=== PATIENT | male | born 1945 | race Caucasian/White ===

== ENCOUNTER → 2019-12-28 | Outpatient (CLI) | payer MEDICARE, SELFPAY ==
[2019-12-28 17:17] LABS: Cytology, Body Fluid / CSF SEE PATHOLOGY REPORT
--- NOTE | 2019-12-29 | CYSPIN_PTH ---
PATIENT: SAMARA ELDER LOC: [facility] U#:[id number] AGE/SX: 74/M ROOM: RE12/28/[address]: Dr. Dez Frederick MD : 1945 BED: DIS: 12/28/2019 SPEC #: [id number] RECD: 12/29/19 13:39 STATUS: SCOOTER XIN #: [id number] TED: 12/29/19 00:[address]: Dez Frederick DEPT: CYTOLOGY RECD BY: Gregory Pineda Tissues: Urine Procedures: Pap Stain (control) Special Stain Group II Cytospin Fluid HEADER OPERATION: Not noted PRE-OP DIAGNOSIS: Malignant neoplasm of bladder TISSUE SUBMITTED: Urine for cytology DIAGNOSIS CYTOLOGY Urine for cytology (cytospin): Negative for malignant cells. AM:erica 01/01/20 CYTOLOGY STUDY Slides are reviewed. CYTOLOGY GROSS Received is 30 ml of yellow cloudy fluid labeled with the patient's name and and designated per the requisition as urine. Submitted for cytology preparation. / erica 12/29/19 TC:5 CPT: 52672
== END | disposition home or self-care (01) ==
PROVIDERS: Referring Provider Urology; Visit Provider Urology
DX: C67.9 Malignant neoplasm of bladder, unspecified (principal)
CPT/HCPCS: 88108; 88313

== ENCOUNTER 2021-10-14 10:40 | Outpatient (CLI) | payer MEDICARE, SELFPAY ==
--- NOTE | 2021-10-14 | CYSPIN_PTH ---
PATIENT: SAMARA ELDER LOC: [facility] U#:[id number] AGE/SX: 75/M ROOM: RE10/14/[address]: Dr. Dez Frederick MD : 1945 BED: DIS: 10/14/2021 SPEC #: [id number] RECD: 10/14/21 15:00 STATUS: SCOOTER LAUREN #: [id number] TED: 10/14/21 00:[address]: Dez Frederick DEPT: CYTOLOGY RECD BY: Homer Aiken Tissues: Urine Procedures: Pap Stain (control) Special Stain Group II Cytospin Fluid HEADER OPERATION: Not noted PRE-OP DIAGNOSIS: Screening for neoplasm of prostate TISSUE SUBMITTED: Urine for cytology DIAGNOSIS CYTOLOGY Urine for cytology (cytospin): Atypical urothelial cells noted. Acute inflammation. See comment. RUBÉN:erica 10/16/2021 COMMENT Clinical correlation and appropriate follow up are necessary. Please make reference to previous specimen ([id number]) bladder tumor, TUR with diagnosis of papillary urothelial carcinoma. CYTOLOGY STUDY Slides are reviewed. CYTOLOGY GROSS Received is 40 ml of yellow hazy fluid labeled with the patient's name and and designated per the requisition as urine. Submitted for cytology preparation. / erica 10/15/2021 TC:5 CPT: 75384
[2021-10-14 11:53] LABS: PSA,Total - Annual Screen 2.61 ng/mL (0.00-4.00)
[2021-10-14 17:27] LABS: Cytology, Body Fluid / CSF SEE PATHOLOGY REPORT
== END 2021-10-14 23:59 | disposition home or self-care (01) ==
LOC: LAB 10:47
PROVIDERS: Visit Provider Urology
DX: Z12.5 Encounter for screening for malignant neoplasm of prostate (principal)
CPT/HCPCS: 36415; 84153; 88108; 88313; G0103

== ENCOUNTER → 2022-10-14 | Outpatient (CLI) | payer MEDICARE, SELFPAY | END | disposition home or self-care (01) | LOC: LAB 10:00 | PROVIDERS: PCP Family Medicine; Visit Provider Urology | DX: Z12.5 Encounter for screening for malignant neoplasm of prostate (principal) | CPT/HCPCS: 36415; 84153; G0103 ==

== ENCOUNTER → 2023-10-26 | Outpatient (CLI) | payer MEDICARE, SELFPAY ==
[2023-10-26 10:48] LABS: PSA,Total - Annual Screen 2.94 ng/mL (0.00-4.00)
== END | disposition home or self-care (01) ==
LOC: LAB 08:13
PROVIDERS: PCP Family Medicine; Referring Provider Urology; Visit Provider Urology
DX: Z12.5 Encounter for screening for malignant neoplasm of prostate (principal)
CPT/HCPCS: 36415; 84153; G0103

== ENCOUNTER → 2023-11-02 | Outpatient (CLI) | payer MEDICARE, SELFPAY ==
--- NOTE | 2023-11-02 09:26 | CYSPIN_PTH ---
PATHOLOGY RESULTS PATIENT: SAMARA ELDER LOC: [facility] U#:[id number] AGE/SX: 77/M ROOM: RE11/02/[address]: Dr. Dez Frederick MD : 1945 BED: DIS: 11/02/2023 SPEC #: [id number] RECD: 11/03/23 07:42 STATUS: SCOOTER REQ #: [id number] TED: 11/02/23 09:[address]: Dez Frederick DEPT: CYTOLOGY RECD BY: Micki Marrero ENTERED: 11/03/23 07:43 SP TYPE: CYSPIN FL OTHR DR: Dr. 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 See comment. SJ:erica 11/03/2023 COMMENT Clinical correlation and appropriate follow up are necessary. The Crystal System for urine cytology diagnostic categorization was used in the evaluation of this case. Please make reference to previous specimen ([id number]) bladder tumor, TUR with diagnosis of papillary urothelial carcinoma. Case has been reviewed in consultation with Dr. Ortiz who concurs with the above diagnosis. IDC:AM CYTOLOGY STUDY Slides are reviewed. CYTOLOGY GROSS Received is 40 ml of gold-yellow cloudy fluid labeled with the patient's name and and designated per the requisition as urine. Submitted for cytology preparation. / erica 11/02/2023 TC:0 CPT: 72341
[2023-11-02 16:14] LABS: Cytology, Body Fluid / CSF SEE PATHOLOGY REPORT
== END | disposition home or self-care (01) ==
LOC: LABSPEC 15:53
PROVIDERS: PCP Family Medicine; Referring Provider Urology; Visit Provider Urology
DX: Z85.51 Personal history of malignant neoplasm of bladder (principal)
CPT/HCPCS: 88108; 88313

== ENCOUNTER → 2023-11-09 | Outpatient (CLI) | payer MEDICARE, SELFPAY ==
--- NOTE | 2023-11-09 08:00 | EKG12_ITS ---
Test Reason : PREOP Blood Pressure : / mmHG Vent. Rate : 068 BPM Atrial Rate : 068 BPM P-R Int : 164 ms QRS Dur : 092 ms QT Int : 388 ms P-R-T Axes : 046 -17 019 degrees QTc Int : 412 ms Normal sinus rhythm Normal ECG When compared with ECG of 14-JAN-2017 09:08, No significant change was found Confirmed by PELON PLUMMER MD ([id number]), associate editor RAEGAN JOHNSON ([id number]) on 11/11/2023 9:14:28 AM Referred By: Dez Frederick Confirmed By:PELON PLUMMER MD
--- OUTSIDE RECORDS SUMMARY | 2023-11-09 08:05 | XMS RPT_ITS | CCD ---
Author Name Unknown Address [address] [place] [address] Organization [facility] Care Team Providers Care Press Tender Short Goods Name Role Phone OTIS BRUNSON Admitting Unavailable OTIS BRUNSON Primary Care Unavailable OTIS BRUNSON Consulting Unavailable OTIS BRUNSON Attending Unavailable PROVIDER, UNKNOWN Consulting Unavailable PROVIDER, UNKNOWN Consulting Unavailable PROVIDER, UNKNOWN Consulting Unavailable Boy MCKNINEY, Otis Campos Unavailable Dr. Devonte Denny MD Unavailable [phone] Otoniel MCKINNEY, Dr. Garces ([facility]) Unavailable [phone] Priscilla CHARLES, Lindsey Unavailable Unavailable Richard BRICK MOLDER HAND, Jenny Unavailable Jacob BRICK MOLDER HAND, Astrid Castillo Unavailable Unavailable Anette Kirby C Unavailable Unavailable Channing BRICK MOLDER HAND, Manda Unavailable Unavailable Kal CHARLES, Loree Jaeger Unavailable Unavaila alejandra Pruett MA, Charlee Unavailable Unavailable Alfredo BRICK MOLDER HAND, Bill Unavailable Unavailable Edwin BRICK MOLDER HAND, Carole Unavailable Unavailable Anthony CAMACHO, Steph Pinedo Unavailable [phone] Sunni WATER HYDRANT INSTALLER, Janet Unavailable Unavailable Selwyn BRICK MOLDER HAND, Gabrielle M Unavailable Unavailab lit Boswell BRICK MOLDER HAND, Vijaya Unavailable Unavailab lit Jade MD, Best Jaeger Unavailable [phone] Vess BRICK MOLDER HAND, Nerusty L Unavailable Unavailable Randy BRICK MOLDER HAND, La Nena Johnson Unavailable Unavaila ble Rebeka BRICK MOLDER HAND, Taylor Unavailable Unavailable Unavailable Unavailable Medications Current Medications Medication Drug Class(es) Dates Sig (Normalized) Sig (Original) amLODIPine 5 mg oral tablet (5 sources) Dihydropyridine Calcium Channel Win Start: 09-15-2023 amLODIPine 5 mg tablet ; 1 (one) tablet qd for 0 days Quantity: 90 {Tablet} Refills: 1 Ordered: 15-Sep-2023 MD Otis Brunson Start: 15-Sep-2023 Comments: Mail order. Completed/Discontinued Medications Medication Drug Class(es) Dates Sig (Normalized) Sig (Original) amoxicillin 500 mg oral tablet (6 sources) Penicillin-class Antibacterial Start: 09-23-2016 End: 10-03-2016 take 1 tablet by mouth three times daily Amoxicillin 500 MG Oral Tablet ; 1 Tab three times daily for 10 days Quantity: 30 {Tablet} Refills: 0 Ordered: 23-Oct-2016 MD Otis Brunson Start: 23-Sep-2016 End: 03-Oct-2016 Status: Inactive amoxicillin 875 mg / clavulanate 125 mg oral tablet (6 sources) Penicillin-class Antibacterial Start: 08-27-2023 End: 09-03-2023 amoxicillin 875 mg-potassium clavulanate 125 mg tablet ; 1 (one) tablet BID for 7 days Quantity: 14 {Tablet} Refills: 0 Ordered: 27-Aug-2023 JANICE Cruz Start: 27-Aug-2023 End: 03-Sep-2023 Status: Inactive benzonatate 100 mg oral capsule (6 sources) Non-narcotic Antitussive Start: 11-21-2018 End: 02-28-2019 take 1 capsule by mouth three times daily as needed for cough Tessalon Perles 100 MG Oral Capsule ; 1 (one) Capsule tid prn cough for 0 days Quantity: 30 {Capsule} Refills: 0 Ordered: 28-Feb-2019 LOUIE Boswell Desirae Marks Start: 21-Nov-2018 End: 28-Feb-2019 Status: Inactive cephalexin 500 mg oral capsule (6 sources) Cephalosporin Antibacterial Start: 01-29-2021 End: 02-08-2021 take 2 capsules by mouth twice daily Cephalexin 500 MG Oral Capsule ; 2 (two) Capsule bid for 10 days Quantity: 40 {Capsule} Refills: 0 Ordered: 29-Jan-2021 MD Otis Brunson Start: 29-Jan-2021 End: 08-Feb-2021 Status: Inactive ciprofloxacin 500 mg oral tablet (6 sources) Quinolone Antimicrobial take 1 tablet by mouth twice daily Cipro 500 MG Oral Tablet ; 1 bid (500 MG) Status: Inactive clotrimazole 10 mg/ml topical cream (6 sources) Azole Antifungal Start: 11-11-2016 End: 05-19-2017 Clotrimazole 1 % External Cream ; apply Cream Cream bid for 0 days Quantity: 80 {Gram} Refills: 0 Ordered: 19-May-2017 Start: 11-Nov-2016 End: 19-May-2017 Status: Inactive fluconazole 100 mg oral tablet (6 sources) Azole Antifungal Start: 11-02-2016 End: 11-09-2016 take 1 tablet by mouth once daily Diflucan 100 MG Oral Tablet ; 1 Tablet daily for 7 days Quantity: 7 {Tablet} Refills: 0 Ordered: 02-Nov-2016 LOUIE James Start: 02-Nov-2016 End: 09-Nov-2016 Status: Inactive metroNIDAZOLE 500 mg oral tablet (6 sources) Nitroimidazole Antimicrobial take 1 tablet by mouth three times daily MetroNIDAZOLE 500 MG Oral Tablet ; 1 tid (500 MG) Status: Inactive nystatin 889475 unt/ml topical cream (6 sources) Polyene Antifungal Start: 10-23-2016 End: 05-19-2017 Nystatin 991575 UNIT/GM External Cream ; apply Cream Cream tid to itch for 0 days Quantity: 45 {Gram} Refills: 1 Ordered: 19-May-2017 Start: 23-Oct-2016 End: 19-May-2017 Status: Inactive rosuvastatin calcium 5 mg oral tablet (6 sources) HMG-CoA Reductase Inhibitor Start: 09-04-2021 End: 10-06-2021 take 1 tablet by mouth once daily at bedtime Rosuvastatin Calcium 5 MG Oral Tablet ; 1 (one) Tablet qhs for 0 days Quantity: 90 {Tablet} Refills: 3 Ordered: 06-Oct-2021 MD Otis Brunson Start: 04-Sep-2021 End: 06-Oct-2021 Status: Inactive Comments: Mail order. Problems Active Problems Problem Classification Problem Date Documented Da te Episodic/Chronic Abdominal pain (18 sources) Acute abdominal pain; Translations: [Unspecified abdominal pain] 10-20-2019 Episodic Cancer of bladder (20 sources) Malignant tumor of urinary bladder; Translations: [Malignant neoplasm of bladder, unspecified] 08-27-2023 Chronic Cancer of bladder (10 sources) H/O: malignant neoplasm; Translations: [Personal history of malignant neoplasm of bladder] 09-15-2023 Episodic Conditions associated with dizziness or vertigo (18 sources) Vertigo; Translations: [Dizziness and giddiness] 10-20-2019 Episodic Diabetes mellitus with complications (20 sources) Type 2 diabetes mellitus; Translations: [Type 2 diabetes mellitus with other specified complication] 08-27-2023 Chronic Past or Other Problems Problem Classification Problem Date Documented Da te Episodic/Chronic Unclassified (6 sources) Cold Symptoms - Symptoms include runny nose, dry cough, productive cough, fever, chills, general malaise and headache, but do not include ear pain or sore throat. The onset was gradual 1 week(s) ago. The symptoms occur constantly. The patient describes this as moderate in severity and improving. The patient is not currently being treated for this problem. The patient has not been exposed to an individual with similar symptoms. Note for Upper respiratory infection : Had 1 drink last night and then went to bed. In the night was coughing quite a bit which became productive - slept well after that. This am has coughed a little bit but doing better. Had tapee tea this am. 08-27-2023 Unclassified (6 sources) [facility] Well Adult - In general the patient feels well with minor complaints. The patient has a balanced diet. The patient exercises 3 - 4 times per week and sleeps 8 hours per night. The patient denies having trouble with bathing, dressing/grooming, toileting, preparing meals and ambulating. The patient denies having trouble with grocery shopping, driving, use of telephone, housework, laundry, preparing/taking medications and finances. Note for [facility] Well Adult : reviewed by [facility] 03-11-2023 Unclassified (6 sources) Hand pain - The onset of the hand pain has been acute and has been occurring in a persistent pattern for 2 months. The course has been increasing. The hand pain is characterized as a moderate sharp stabbing. The hand pain is described as being located in the entire hand. The hand pain is aggravated by physical activity and any movement. Note for Hand pain : reviewed by [facility] 06-23-2022 Unclassified (6 sources) [facility] Well Adult - In general the patient feels well with no complaints, has good energy level and is sleeping well. The patient has a balanced diet and takes supplemental vitamins. The patient exercises 3 - 4 times per week and sleeps 8 hours per night. The patient denies having trouble with bathing, dressing/grooming, toileting, preparing meals and ambulating. The patient denies having trouble with grocery shopping, driving, use of telephone, housework, laundry, preparing/taking medications and finances. The patient does not have Healthcare Power of Bioprocess Development Engineer or Living Will. 03-04-2022 Unclassified (6 sources) Hand pain - The onset of the hand pain has been sudden (he was by [employer] and stepped on a wet rock and slipped) and has been occurring in a persistent pattern for 1 day (occurred yesterday about 4pm). The course has been without change. The hand pain is characterized as a mild to moderate sharp stabbing. The hand pain is described as being located in the thumb (left thumb) and base of thumb. The hand pain is aggravated by making a fist. The symptoms have been associated with joint swelling (bruising present) and painful ROM. Previous surgery has included carpal tunnel release. Note for Hand pain : Been taking Advil for pain. reviewed by [facility] 02-27-2021 Unclassified (6 sources) Cold Symptoms - Symptoms include sneezing, nasal congestion, runny nose, productive cough, chills, general malaise and headache, but do not include ear pain, ear fullness, sore throat or fever. The onset was sudden 3 week(s) ago. The symptoms occur constantly. The patient describes this as moderate in severity and unchanged. Current treatment includes cough suppressants. Note for Upper respiratory infection : He has been Covid immunization. 01-29-2021 Unclassified (6 sources) Pre-operative clearance - Surgical procedure(s) planned: other (Cataract Surgery). Date of procedure: (04/24/2019) Surgeon: (Dr. Parker) and Location of procedure: ([facility]) There have been no problems with general anesthesia or blood/blood products. Prosthetics include dentures (upper dentures) and eye glasses. Note for Pre-operative clearance : reviewed by [facility] 04-14-2019 Unclassified (6 sources) Dizziness - The onset of the dizziness has been acute and has been occurring in an intermittent pattern for 5 days. The course has been recurrent. The dizziness is characterized as lightheadedness. The dizziness is precipitated by position change, head turning and standing suddenly. There has been no associated nausea, vomiting, ear pain or ear fullness. The dizziness is relieved by lying still. Note for Dizziness : reviewed by [facility] 02-28-2019 Unclassified (4 sources) Follow-up for multiple chronic conditions (RAH) - The patient is here for follow-up of hypertension and other condition(s) (bladder cancer). The patient always takes the prescribed medications. No side effects noted. The patient has an active lifestyle but no regular exercise program and has not been following previous dietary instructions. The patient's out of office blood pressure checks occur frequently and dietary compliance is fair often eating foods not normally recommended. The patient has been seen by an clinical trial specialist in the past 12 months and had a chemistry profile completed since the last visit. The patient's last lipid profile was (11/14/2018) and blood sugar range is usually (132 11/14/2018). The patient states that weight has increased (4#). Note for Multiple chronic conditions follow-up : reviewed by [facility] 11-21-2018 Unclassified (4 sources) [ADDITIONAL REASON] Cold Symptoms - Symptoms include nasal congestion, runny nose, sore throat, dry cough, productive cough, fever, chills and headache, but do not include ear pain, ear fullness or facial pain. The onset was gradual 10 day(s) ago. The symptoms occur constantly. The patient describes this as moderate in severity and unchanged. Current treatment includes non-prescription cold medication (nyquil). Risk factors do not include smoking. The patient has been exposed to an individual with similar symptoms. Patient denies history of seasonal allergies or asthma. Note for Upper respiratory infection : reviewed by [facility] 11-21-2018 Unclassified (6 sources) Abdominal pain - The onset of the abdominal pain has been sudden and has been occurring in a persistent pattern for 24 hours. The pain is described as a moderate sharp pain and pressure sensation. The pain is located in the periumbilical area. 07-02-2017 Unclassified (6 sources) Ankle pain - The onset of the ankle pain has been acute and has been occurring in a persistent pattern for 2 days. The course has been without change. The pain is characterized as a moderate to severe dull aching. The pain is in the left ankle. Note for Ankle pain : Fell yesterday and twisted left ankle. reviewed by [facility] 12-28-2016 Unclassified (6 sources) Cold Symptoms - Symptoms include sneezing, nasal congestion, runny nose, ear fullness, sore throat, hoarseness, productive cough, fever (did not take temperature but felt like he was running a fever at times.), chills and headache, but do not include ear pain. The onset was sudden 3 week(s) ago. The symptoms occur constantly. The patient describes this as moderate in severity and worsening. Current treatment includes non-prescription cold medication. Note for Upper respiratory infection : reviewed by [facility] 09-23-2016 Unclassified (6 sources) Medication follow up - Patient was seen by Dr. Brunson on 04/30/15 for headaches and elevated blood pressure. He was prescribed Lisinopril 10mg daily and is here today to follow up. Patient states he has been monitoring his bp at home and his bp is lower. However, his headaches are not improving. reviewed by [facility] 06-11-2015 Unclassified (5 sources) Headache - The onset of the headache has been variable and has been occurring in a persistent pattern for 2 months. The course has been constant. The headache is characterized as moderate and a dull ache. The headache is experienced any time of the day (no diurnal variation). The headache is described as being located in the frontal area. The symptoms are aggravated by bright light. Note for Headache : reviewed by [facility] 04-30-2015 Unclassified (5 sources) [ADDITIONAL REASON] Arm pain - The pain is in the left arm. The onset of the pain has been acute and has been occurring in a persistent pattern for 6 months. The course has been increasing. The pain is described as moderate. Note for Pain : Also complains of right upper leg pain off and on. reviewed by [facility] 04-30-2015 Unclassified (6 sources) Cold Symptoms - Symptoms include sneezing, nasal congestion, runny nose, ear pain (left side on occasion.), scratchy throat, hoarseness, productive cough, wheezing, chills, general malaise and headache, but do not include ear fullness, sore throat, fever or facial pain. The onset was sudden 4 week(s) ago. The symptoms occur constantly. The patient describes this as moderate in severity and worsening. The patient is not currently being treated for this problem. Note for Upper respiratory infection : Started a month ago when he mixed chemical that interacted with each other. reviewed by [facility] 12-26-2014 Unclassified (6 sources) Follow up consultation - The patient is here to follow-up after Emergency Room/Urgent Care on : (05/29/13 at [facility] in [place]. Pt cut 2 fingers (index and middle finger of left hand) with a circular saw. Pt is currently on Cephalexion 500 mg bid. Pt Tetanus was also updated. Pt has 7 stitches in index finger and 5 in middle finger. Wqas using Vicodin for pain.). Note for Consultation follow-up : reviewed by [facility] 06-02-2013 Unclassified (6 sources) Follow Up for Multiple Chronic Conditions - The patient is here for follow-up of hypertension. The patient has stopped the recommended medications. (Stopped in January.) The patient has an active lifestyle but no regular exercise program. The patient's out of office blood pressure checks occur frequently (125/90 is average). The patient states that headaches are rarely noted. Note for Follow Up for Multiple Chronic Conditions : Pt left spouse in January and stress is much better. While on lisinopril he c/o fatigue, since resolved. 05-19-2011 Unclassified (6 sources) Increased blood pressure - Here for increased blood pressure over the past month. Yesterdays BP 153/102. Complains of headaches on occasion. Is under a lot of stress the last few weeks. 11-18-2010 Unclassified (2 sources) Cold Symptoms - Symptoms include nasal congestion, runny nose, sore throat, dry cough, productive cough, fever, chills and headache, but do not include ear pain, ear fullness or facial pain. The onset was gradual 10 day(s) ago. The symptoms occur constantly. The patient describes this as moderate in severity and unchanged. Current treatment includes non-prescription cold medication (nyquil). Risk factors do not include smoking. The patient has been exposed to an individual with similar symptoms. Patient denies history of seasonal allergies or asthma. Note for Upper respiratory infection : reviewed by [facility] 11-21-2018 Unclassified (2 sources) [ADDITIONAL REASON] Follow-up for multiple chronic conditions (RAH) - The patient is here for follow-up of hypertension and other condition(s) (bladder cancer). The patient always takes the prescribed medications. No side effects noted. The patient has an active lifestyle but no regular exercise program and has not been following previous dietary instructions. The patient's out of office blood pressure checks occur frequently and dietary compliance is fair often eating foods not normally recommended. The patient has been seen by an clinical trial specialist in the past 12 months and had a chemistry profile completed since the last visit. The patient's last lipid profile was (11/14/2018) and blood sugar range is usually (132 11/14/2018). The patient states that weight has increased (4#). Note for Multiple chronic conditions follow-up : reviewed by [facility] 11-21-2018 Unclassified (1 source) Arm pain - The pain is in the left arm. The onset of the pain has been acute and has been occurring in a persistent pattern for 6 months. The course has been increasing. The pain is described as moderate. Note for Pain : Also complains of right upper leg pain off and on. reviewed by [facility] 04-30-2015 Unclassified (1 source) [ADDITIONAL REASON] Headache - The onset of the headache has been variable and has been occurring in a persistent pattern for 2 months. The course has been constant. The headache is characterized as moderate and a dull ache. The headache is experienced any time of the day (no diurnal variation). The headache is described as being located in the frontal area. The symptoms are aggravated by bright light. Note for Headache : reviewed by [facility] 04-30-2015 Results Test Name Value Interpretation Reference Range Facil ity Vital Signs Date Time Vital Sign Value Performing Clinician Brittany machado 09-15-2023 07:01-0500 Body height 175.26 cm Otis Brunson MD Work Phone: [email or web address]; [employer] [facility] [employer] 09-15-2023 07:01-0500 Body mass index (BMI) [Ratio] 28.21 kg/m2 Otis Brunson MD Work Phone: [email or web address]; [employer] [facility] [employer] 09-15-2023 07:01-0500 Body surface area Derived from formula 2.03 m2 Otis Brunson MD Work Phone: [email or web address]; [employer] [facility] [employer] 09-15-2023 07:01-0500 Body weight 86.64 kg Otis Brunson MD Work Phone: [email or web address]; [employer] [facility] [employer] 09-15-2023 07:01-0500 Diastolic blood pressure 94 mm[Hg] Otis Brunson MD Work Phone: [email or web address]; [email or web address] Encounters Encounter Date Encounter Type Care Provider Facility Start: 10-13-2023 End: 10-13-2023 Historical Summary Otis Brunson MD Work Phone: [email or web address] Start: 09-15-2023 End: 09-15-2023 Office outpatient visit 25 minutes Otis Brunson MD Work Phone: [email or web address] Start: 08-27-2023 End: 08-27-2023 Office outpatient visit 15 minutes Otis Brunson MD Work Phone: [email or web address] Start: 03-11-2023 End: 03-11-2023 Periodic preventive med est patient 65yrs& older Otis Brunson MD Work Phone: [employer] [facility] [employer] Start: 02-18-2023 End: 02-28-2023 Orders Otis Brunson MD Work Phone: [employer] [facility] [employer] Start: 02-16-2023 End: 02-28-2023 Orders Otis Brunson MD Work Phone: [employer] [facility] [employer] Start: 09-03-2022 End: 09-03-2022 Office outpatient visit 15 minutes Otis Brunson MD Work Phone: [employer] [facility] [employer] Start: 06-24-2022 End: 06-24-2022 Medication Otis Brunson MD Work Phone: [employer] [facility] [employer] Start: 06-23-2022 End: 06-23-2022 ambulatory OTIS BRUNSON [facility] Start: 06-23-2022 End: 06-23-2022 Office outpatient visit 15 minutes Otis Brunson MD Work Phone: [email or web address] Start: 03-24-2022 End: 03-24-2022 Historical Summary Otis Brunson MD Work Phone: [email or web address] Start: 03-04-2022 End: 03-04-2022 Periodic preventive med est patient 65yrs& older Otis Brunson MD Work Phone: [employer] [facility] [employer] Start: 09-04-2021 End: 09-04-2021 Office outpatient visit 15 minutes Otis Brunson MD Work Phone: [employer] [facility] [employer] Start: 07-16-2021 End: 07-16-2021 Orders Otis Brunson MD Work Phone: [employer] [facility] [employer] Start: 03-06-2021 End: 03-06-2021 Office outpatient visit 15 minutes Otis Brunson MD Work Phone: [employer] [facility] [employer] Start: 02-27-2021 End: 02-27-2021 Office outpatient visit 15 minutes Otis Brunson MD Work Phone: [employer] [facility] [employer] Start: 01-29-2021 End: 01-29-2021 Office outpatient visit 15 minutes Otis Brunson MD Work Phone: [employer] [facility] [employer] Start: 10-24-2020 End: 10-25-2020 Orders Otis Brunson MD Work Phone: [employer] [facility] [employer] Start: 09-06-2020 End: 09-06-2020 Office outpatient visit 25 minutes Otis Brunson MD Work Phone: [employer] [facility] [employer] Start: 03-08-2020 End: 03-08-2020 Office outpatient visit 15 minutes Otis Brunson MD Work Phone: [employer] [facility] [employer] Start: 10-26-2019 End: 10-29-2019 Orders Otis Brunson MD Work Phone: [employer] [facility] [employer] Start: 10-20-2019 End: 10-20-2019 Office outpatient visit 15 minutes Otis Brunson MD Work Phone: [employer] [facility] [employer] Start: 04-14-2019 End: 04-14-2019 Office outpatient visit 15 minutes Otis Brunson MD Work Phone: [email or web address] Start: 04-14-2019 End: 04-14-2019 Preprocedural examination done Otis Brunson MD Work Phone: [email or web address]; [employer] [facility] [employer] Start: 02-28-2019 End: 02-28-2019 Office outpatient visit 15 minutes Otis Brunson MD Work Phone: [email or web address] Start: 11-21-2018 End: 11-17-2018 Historical Summary Otis Brunson MD Work Phone: [email or web address] Start: 11-21-2018 End: 11-21-2018 Office outpatient visit 25 minutes Otis Brunson MD Work Phone: [email or web address] Start: 05-23-2018 End: 05-23-2018 Office outpatient visit 15 minutes Otis Brunson MD Work Phone: [email or web address] Start: 11-17-2017 End: 11-17-2017 Office outpatient visit 15 minutes Otis Brunson MD Work Phone: [email or web address] Start: 07-06-2017 End: 07-06-2017 Medication Otis Brunson MD Work Phone: [email or web address] Start: 07-06-2017 End: 07-06-2017 Telephone follow-up Otis Brunson MD Work Phone: [email or web address] Start: 07-02-2017 End: 07-02-2017 Patient encounter procedure Otis Brunson MD Work Phone: [email or web address] Start: 06-03-2017 End: 06-03-2017 Nursing evaluation of patient and report Otis Brunson MD Work Phone: [email or web address] Start: 05-19-2017 End: 05-19-2017 Office outpatient visit 15 minutes Otis Brunson MD Work Phone: [email or web address] Start: 12-28-2016 End: 12-28-2016 Office outpatient visit 15 minutes Otis Brunson MD Work Phone: [email or web address] Start: 11-11-2016 End: 11-11-2016 Periodic preventive med est patient 65yrs& older Otis Brunson MD Work Phone: [employer] Start: 11-02-2016 End: 11-02-2016 Medication Otis Brunson MD Work Phone: [employer] [facility] [employer] Start: 10-28-2016 End: 10-28-2016 Orders Otis Brunson MD Work Phone: [employer] [facility] [employer] Start: 10-26-2016 End: 10-26-2016 Orders Otis Brunson MD Work Phone: [employer] Start: 10-23-2016 End: 10-23-2016 Medication Otis Brunson MD Work Phone: [employer] Start: 09-23-2016 End: 09-23-2016 Office outpatient visit 15 minutes Otis Burnson MD Work Phone: [employer] Start: 06-05-2016 End: 06-05-2016 Historical Summary Otis Brunson MD Work Phone: [employer] [facility] [employer] Start: 06-01-2016 End: 06-01-2016 Office outpatient visit 15 minutes Otis Brunson MD Work Phone: [employer] Start: 12-10-2015 End: 12-10-2015 Office outpatient visit 15 minutes Otis Brunson MD Work Phone: [employer] [facility] [employer] Start: 10-30-2015 End: 10-30-2015 Medication Otis Brunson MD Work Phone: [employer] Start: 06-11-2015 End: 06-11-2015 Office outpatient visit 15 minutes Otis Brunson MD Work Phone: [employer] Start: 04-30-2015 End: 04-30-2015 Office outpatient visit 15 minutes Otis Brunson MD Work Phone: [employer] Start: 12-26-2014 End: 12-26-2014 Office outpatient visit 15 minutes Otis Brunson MD Work Phone: [employer] Start: 02-23-2014 End: 02-23-2014 Historical Summary Otis Brunson MD Work Phone: [email or web address] Start: 01-05-2014 End: 01-05-2014 Orders Otis Brunson MD Work Phone: [email or web address] Start: 01-03-2014 End: 01-03-2014 Patient encounter procedure Otis Brunson MD Work Phone: [email or web address] Start: 12-25-2013 End: 12-25-2013 Orders Otis Brunson MD Work Phone: [email or web address] Start: 06-06-2013 End: 06-06-2013 Orders Otis Brunson MD Work Phone: [email or web address] Start: 06-02-2013 End: 06-02-2013 Patient encounter procedure Otis Brunson MD Work Phone: [email or web address] Start: 05-19-2011 End: 05-19-2011 Patient encounter procedure Otis Brunson MD Work Phone: [email or web address] Start: 12-02-2010 End: 12-02-2010 Medication Otis Brunson MD Work Phone: [employer] Start: 11-18-2010 End: 11-18-2010 Patient encounter procedure Otis Brunson MD Work Phone: [employer] [facility] Loree Bowden RN [employer] Procedures Date Procedure Procedure Detail Performing Clinician Start: 09-15-2023 End: 09-15-2023 Flu imm no admin doc miky Otis Greenberg Work Phone: Start: 03-11-2023 End: 03-11-2023 Adv care pln/ no alt dcsn mkr docd or refusal Otis Brunson MD Work Phone: Start: 03-11-2023 End: 03-11-2023 Depression screening Otis Brunson MD Work Phone: Start: 03-11-2023 End: 03-11-2023 Falls risk assessment documented Otis Brunson MD Work Phone: Start: 03-11-2023 End: 03-11-2023 PPPS, subseq visit Otis Brunson MD Work Phone: Start: 03-11-2023 End: 03-11-2023 Pt falls assess docd w/o fall/injury past year Otis Brunson MD Work Phone: Start: 03-11-2023 End: 03-11-2023 Scr dep neg, no plan reqd Otis Brunson MD Work Phone: Start: 02-18-2023 End: 02-18-2023 Lab findings surveillance Bill Edmond PN Plan of Treatment Date Care Activity Detail Author Start: 03-22-2024 Nursing evaluation o f patient and report [email or web address] Start: 09-15-2023 Patient encounter procedure Medical; RTN OFFICE VISIT - 6 MOS RTN [facility] Start: 15-Sep-2023 7:00 MD Otis Brunson Appointment Request [email or web address] Start: 08-27-2023 Covid-19 / Flu A&B, Rapid ([id number]) Covid-19 / Flu A&B, Rapid ([id number]) Start: 27-Aug-2023 Request Comments: negative [employer]; [employer] Immunizations Immunization Date Immunization Notes Care Provider Fa [facility] 06-03-2017 influenza, injectabl e, quadrivalent, contains preservative Otis Brunson MD Work Phone: [email or web address]; [email or web address] Payers Date Payer Category Payer Unknown [id number] Medicare [id number] Social History Date Type Detail Facility Alcohol Use: Alcohol Use: ; None. [employer] Caffeine Use Caffeine Use [employer] Current Work/Study Status: [employer] Work/Study Status: ; Retired. [employer] Tobacco Use: Tobacco Use: ; F ormer smoker. [employer] [facility] [employer]. Work Phone: Retired [employer] [facility] [employer]; [employer]. Work Phone: Ex-smoker [employer] [facility] [employer]; [employer] Work Phone: Medical Equipment Procedure Code Equipment Code Equipment Origin al Text Equipment Identifier Dates Accu-Chek [employer] Lancets Miscellaneous ; as directed for 90 days Quantity: 100 Kit Refills: 3 Ordered: 16-Jul-2021 LOUIE Pineda Start: 16-Jul-2021 Comments: dispense 1 box with 3 refills [id number] Start: 07-16-2021 Summary Purpose Family History Cancer Status:Active Comments:Mother. colon Cerebrovascular Accident Status:Active Comment s:Father. Coronary Artery Disease Status:Active Comments :Negative Family History Of. Diabetes Mellitus Type II Status:Active Commen ts:Maternal Grandmother. Hypertension Status:Active Comments:Grandfa ther Cancer Status:Active Comments:Mother. colon Cerebrovascular Accident Status:Active Comment s:Father. Coronary Artery Disease Status:Active Comments :Negative Family History Of. Diabetes Mellitus Type II Status:Active Commen ts:Maternal Grandmother. Hypertension Status:Active Comments:Grandfa ther Cancer Status:Active Comments:Mother. colon Cerebrovascular Accident Status:Active Comment s:Father. Coronary Artery Disease Status:Active Comments :Negative Family History Of. Diabetes Mellitus Type II Status:Active Commen ts:Maternal Grandmother. Hypertension Status:Active Comments:Grandfa ther Cancer Status:Active Comments:Mother. colon Cerebrovascular Accident Status:Active Comment s:Father. Coronary Artery Disease Status:Active Comments :Negative Family History Of. Diabetes Mellitus Type II Status:Active Commen ts:Maternal Grandmother. Hypertension Status:Active Comments:Grandfa ther Cancer Status:Active Comments:Mother. colon Cerebrovascular Accident Status:Active Comment s:Father. Coronary Artery Disease Status:Active Comments :Negative Family History Of. Diabetes Mellitus Type II Status:Active Commen ts:Maternal Grandmother. Hypertension Status:Active Comments:Grandfa ther Cancer Status:Active Comments:Mother. colon Cerebrovascular Accident Status:Active Comment s:Father. Coronary Artery Disease Status:Active Comments :Negative Family History Of. Diabetes Mellitus Type II Status:Active Commen ts:Maternal Grandmother. Hypertension Status:Active Comments:Grandfa ther Advance Directives No Advanced Directives Records FoundNo Advanced Directives Records Found Additional Source Comments (unrecognized sect ion and content) No Status Records FoundNo Status Records Found INFORMATION SOURCE (unrecogn ized section and content) DATE CREATED AUTHOR AUTHOR'S ORGANIZ ATION 02/19/2023 [facility] FOR RECORDS PERTAINING TO PATIENTS WHO ARE OR HAVE BEEN ENROLLED IN A CHEMICAL DEPENDENCY/SUBSTANCEABUSE PROGRAM, SOME INFORMATION MAY BE OMITTED. This clinical summary was aggregated from multiple sources. Caution should be exercised in using it in the provision of clinical care. This summary normalizes information from multiple sources, and as a consequence, information in this document may materially change the coding, format and clinical context of patient data. In addition, data may be omitted in some cases. CLINICAL DECISIONS SHOULD BE BASED ON THE PRIMARY CLINICAL RECORDS. [employer] provides no warranty or guarantee of the accuracy or completeness of information in this document.
[2023-11-09 08:20] LABS: Hemoglobin 14.5 g/dL (13.0-16.5); Mean Corp Hgb Conc 33.7 g/dL (32-36); Mean Corpuscular Hgb 31.1 pg (27.0-32.0); Mean Corpuscular Volume 92.3 fL (80-94); Mean Platelet Vol. 9.1 fl (6.2-12.0); Platelet Count 258 K/mm3 (150-450); RBC Distribution Width CV 12.8 % (11.6-14.6); RBC Distribution Width SD 43.8 fl (35.1-43.9); Red Blood Count 4.66 M/mm3 (4.6-6.2); White Blood Count 5.3 K/mm3 (4.4-11.0)
[2023-11-09 08:41] LABS: Anion Gap 4 (5-15); BUN 19 mg/dL (7-18); BUN/Creat Ratio 24.5 RATIO (10-20); Calcium,Total 8.9 mg/dL (8.5-10.1); Chloride 108 mmol/L (98-107); Creatinine, Serum 0.78 mg/dL (0.70-1.30); EST Glomerular Filtration Rate 103 mL/min (>60); Est Glom Filt Rate - Afr Amer 125 mL/min (>60); Glucose 135 mg/dL (74-106); Sodium Level 140 mmol/L (136-145)
== END | disposition home or self-care (01) ==
PROVIDERS: PCP Family Medicine; Referring Provider Urology; Visit Provider Urology
DX: Z01.810 Encounter for preprocedural cardiovascular examination (principal)
CPT/HCPCS: 36415; 80048; 85027; 93005

== ENCOUNTER → 2023-11-19 | Outpatient (CLI) | payer MEDICARE, SELFPAY ==
--- NOTE | 2023-11-19 | BLB_PTH ---
PATIENT: SAMARA ELDER LOC: [facility] U#:[id number] AGE/SX: 77/M ROOM: RE11/19/[address]: Dr. Dez Frederick MD : 1945 BED: DIS: 11/19/2023 SPEC #: [id number] RECD: 11/22/23 08:55 STATUS: SCOOTER REGianna #: [id number] TED: 11/19/23 00:[address]: Dez Frederick DEPT: SURGICAL PATHOLOGY RECD BY: Gregory Pineda ENTERED: 11/22/23 08:55 SP TYPE: TURB OTHR DR: Dr. Clifton Brunson MD Tissues: Urinary bladder, NOS Procedures: Surgery Specimen Level V HEADER OPERATION: Transurethral resection of bladder tumor PRE-OP DIAGNOSIS: Personal history of malignant neoplasm of bladder TISSUE SUBMITTED: Bladder tumor MICROSCOPIC DIAGNOSIS Urinary bladder tumor, transurethral resection; Chronic cystitis. No evidence of malignancy. AM/mr 11/23/2023 MICROSCOPIC DESCRIPTION Slides are reviewed. GROSS DESCRIPTION Received in fixative is one container labeled with the patient's name and designated Bladder biopsy. The specimen consists of one irregular fragment of light uriarte soft tissue that measures 0.3 x 0.3 x 0.1 cm. The specimen is totally submitted in one cassette. RUBÉN/ 11/22/2023 TC:3 CPT: 85479
== END | disposition home or self-care (01) ==
PROVIDERS: PCP Family Medicine; Visit Provider Urology
DX: R89.6 Abnormal cytological findings in specimens from other organs, systems and tissues (principal); Z85.51 Personal history of malignant neoplasm of bladder
CPT/HCPCS: 88307

== ENCOUNTER → 2024-12-26 | Outpatient (CLI) | payer MEDICARE, SELFPAY ==
[2024-12-26 14:07] LABS: PSA,Total - Annual Screen 2.88 ng/mL (0.02-4.00)
== END | disposition home or self-care (01) ==
LOC: LAB 13:09
PROVIDERS: PCP Family Medicine; Referring Provider Urology; Visit Provider Urology
DX: Z12.5 Encounter for screening for malignant neoplasm of prostate (principal)
CPT/HCPCS: 36415; 84153; G0103